=== PATIENT | female | born 1985 | race Caucasian/White ===

== ENCOUNTER 2019-09-22 16:36 | Inpatient (IN) | payer BC ==
[2019-09-22] MEDS ORDERED: Sodium Chloride 0.9% 10 ML Syringe FLUSH PRN (17:22)
[2019-09-22] MEDS ORDERED: Acetaminophen 325 MG Tab PO PRN (17:22)
[2019-09-22] MEDS ORDERED: Misoprostol 25 MCG (1/4 of 100 MCG) Tab VAG SCH (17:30)
[2019-09-22] MEDS ORDERED: Oxytocin/Lactated Ringers 20 UNIT/1,000 ML BAG IV SCH (17:30)
[2019-09-22] MEDS ORDERED: Oxytocin/Lactated Ringers 10 UNIT/1,000 ML BAG IV SCH (17:30)
[2019-09-22] MEDS ORDERED: Ampicillin 2 GM in Sodium Chloride 0.9% 100 ML IV ONE (18:00)
[2019-09-22] MEDS: Lactated Ringers 1,000 ML IV SCH (18:02)
[2019-09-22] MEDS: Ampicillin 1 GM in Sodium Chloride 0.9% 100 ML IV SCH (21:31)
[2019-09-23] MEDS ORDERED: Lidocaine 1.5% with EPINEPHrine 1:200,000 5 ML Amp ONE
[2019-09-23] MEDS ORDERED: ePHEDrine 50 MG/ML SDV IVPUSH PRN (00:21)
[2019-09-23] MEDS ORDERED: Bupivacaine/fentaNYL/NS 100 ML Bag EPIDUR PRN (00:21)
[2019-09-23] MEDS ORDERED: fentaNYL 100 MCG/2 ML SDV EPIDUR PRN (00:21)
[2019-09-23] MEDS ORDERED: diphenhydrAMINE 50 MG/ML SDV IVPUSH PRN (00:21)
--- NOTE | 2019-09-23 00:21 | PCM.PREANE ---
Preanesthetic Assessment - Anesthesia/Transfusion/Family Hx Anesthesia History: Prior Anesthesia Without Reaction Transfusion History: No Prior Transfusion(s) - Review of Systems General: No Symptoms Pulmonary: No Symptoms Cardiovascular: No Symptoms Gastrointestinal: No Symptoms Neurological: No Symptoms Other: Reports: None - Physical Assessment Vital Signs: Last Vital Signs Temp 97.9 F 09/22/19 17:22 Pulse 85 09/22/19 18:30 Resp 14 09/22/19 17:22 BP 145/84 H 09/22/19 18:30 Pulse Ox Height: 1.68 m Weight: 94.801 kg ASA Class: 2 Mental Status: Alert & Oriented x3 Airway Class: Mallampati = 2 Dentition: Reports: Normal Dentition Thyro-Mental Finger Breadths: 3 Mouth Opening Finger Breadths: 3 ROM/Head Extension: Full (small receding chin, potentially difficult airway) Lungs: Clear to Auscultation, Normal Respiratory Effort Cardiovascular: Regular Rate, Regular Rhythm - Lab Values: Laboratory Last Values WBC 9.25 K/mm3 (3.98-10.04) 09/22/19 17:35 RBC 4.01 M/mm3 (3.98-5.22) 09/22/19 17:35 Hgb 12.3 gm/dl (11.2-15.7) 09/22/19 17:35 Hct 36.7 % (34.1-44.9) 09/22/19 17:35 MCV 91.5 fl (79.4-94.8) 09/22/19 17:35 MCH 30.7 pg (25.6-32.2) 09/22/19 17:35 MCHC 33.5 g/dl (32.2-35.5) 09/22/19 17:35 RDW Std Deviation 44.5 fL (36.4-46.3) 09/22/19 17:35 Plt Count 173 K/mm3 (182-369) L 09/22/19 17:35 MPV 10.4 fl (9.4-12.3) 09/22/19 17:35 Neut % (Auto) 70.3 % (34.0-71.1) 09/22/19 17:35 Lymph % (Auto) 22.6 % (19.3-51.7) 09/22/19 17:35 [place] % (Auto) 6.3 % (4.7-12.5) 09/22/19 17:35 Eos % (Auto) 0.4 (0.7-5.8) L 09/22/19 17:35 Baso % (Auto) 0.2 % (0.1-1.2) 09/22/19 17:35 Neut # (Auto) 6.50 K/mm3 (1.56-6.13) H 09/22/19 17:35 Lymph # (Auto) 2.09 K/mm3 (1.18-3.74) 09/22/19 17:35 [place] # (Auto) 0.58 K/mm3 (0.24-0.36) H 09/22/19 17:35 Eos # (Auto) 0.04 K/mm3 (0.04-0.36) 09/22/19 17:35 Baso # (Auto) 0.02 K/mm3 (0.01-0.08) 09/22/19 17:35 BUN 7 mg/dL (7-18) 09/22/19 17:35 Creatinine 0.8 mg/dL (0.55-1.02) 09/22/19 17:35 Est Cr Clr Drug Dosing 93.63 mL/min 09/22/19 17:35 Estimated GFR (MDRD) > 60 mL/min (>60) 09/22/19 17:35 Uric Acid 5.3 mg/dL (2.6-6.0) 09/22/19 17:35 AST 15 U/L (15-37) 09/22/19 17:35 ALT 15 U/L (14-59) 09/22/19 17:35 Lactate Dehydrogenase 148 U/L (81-234) 09/22/19 17:35 Urine Color Yellow (Yellow) 09/22/19 17:15 Urine Appearance Clear (Clear) 09/22/19 17:15 Urine pH 7.0 (5.0-8.0) 09/22/19 17:15 Ur Specific [place] 1.020 (1.005-1.030) 09/22/19 17:15 Urine Protein Negative (Negative) 09/22/19 17:15 Urine Glucose (UA) Negative (Negative) 09/22/19 17:15 Urine Ketones Negative (Negative) 09/22/19 17:15 Urine Occult Blood Negative (Negative) 09/22/19 17:15 Urine Nitrite Negative (Negative) 09/22/19 17:15 Urine Bilirubin Negative (Negative) 09/22/19 17:15 Urine Urobilinogen 0.2 (0.2-1.0) 09/22/19 17:15 Ur Leukocyte Esterase 1+ (Negative) H 09/22/19 17:15 Urine RBC 0-5 /hpf (0-5) 09/22/19 17:15 Urine WBC 10-20 /hpf (0-5) H 09/22/19 17:15 Ur Squamous Epith Cells 10-20 /hpf (0-5) H 09/22/19 17:15 Urine Bacteria Few /hpf (FEW) 09/22/19 17:15 Urine Mucus Not seen /hpf (FEW) 09/22/19 17:15 Ur Random Creatinine 17.5 mg/dL (30.0-125.0) L 09/22/19 17:30 U Random Total Protein < 6.0 mg/dL (0.0-11.8) 09/22/19 17:30 Protein/Creatinin Ratio TNP 09/22/19 17:30 - Allergies Allergies/Adverse Reactions: Allergies Allergy/AdvReac Type Severity Reaction Status Date / Time No Known Allergies Allergy Verified 04/27/18 13:49 - Acknowledgements Anesthesia Type Planned: Epidural Pt an Appropriate Candidate for the Planned Anesthesia: Yes Alternatives and Risks of Anesthesia Discussed w Pt/Guardian: Yes Pt/Guardian Understands and Agrees with Anesthesia Plan: Yes PreAnesthesia Questionnaire HEENT History: Reports: Other (See Below) Other HEENT History: wears glasses or contacts Cardiovascular History: Reports: Hypertension Other Cardiovascular History: states is not on meds. 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 Cardiovascular Surgical History: Reports: None - SUBSTANCE USE Smoking Status *Q: Never Smoker Second Hand Smoke Exposure: No Recreational Drug Use History: No - HOME MEDS Home Medications: Home Meds [id number]/Iron Fumarate/FA/DSS [ 19 Tablet] 1 each PO DAILY 09/22/19 [ History] - CURRENT (IN HOUSE) MEDS Current Meds: Current Medications Acetaminophen (Tylenol) 650 mg PO Q4H PRN PRN Reason: Pain (Mild 1-3) and fever Ampicillin Sodium 1 gm/ Sodium (Chloride) 100 mls @ 200 mls/hr IV Q4H KIMBERLY Last Admin: 09/22/19 21:31 Dose: 200 mls/hr Lactated Ringer's (Ringers, Lactated) 1,000 mls @ 100 mls/hr IV ASDIRECTED KIMBERLY Last Admin: 09/22/19 18:02 Dose: 100 mls/hr Oxytocin/Lactated Ringer's (Pitocin In Lr 10 Units/1,000 Ml) 10 unit in 1,000 mls @ 12 mls/hr IV TITRATE KIMBERLY; Protocol Last Admin: 09/22/19 23:32 Dose: 2 munits/min, 12 mls/hr Oxytocin/Lactated Ringer's (Pitocin In Lr 20 Units/1,000 Ml) 20 unit in 1,000 mls @ 500 mls/hr IV CONTINUOUS KIMBERLY Sodium Chloride (Saline Flush) 10 ml FLUSH ASDIRECTED PRN PRN Reason: Keep Vein Open Discontinued Medications Ampicillin Sodium 2 gm/ Sodium (Chloride) 100 mls @ 200 mls/hr IV ONETIME ONE Stop: 09/22/19 18:29 Last Admin: 09/22/19 18:03 Dose: 200 mls/hr Misoprostol (Cytotec) 25 mcg VAG Q4H KIMBERLY Stop: 09/23/19 01:31 Last Admin: 09/22/19 17:41 Dose: 25 mcg
[2019-09-23] MEDS: Lactated Ringers 1,000 ML IV SCH ×3 (00:26→02:00)
[2019-09-23] MEDS: Ampicillin 1 GM in Sodium Chloride 0.9% 100 ML IV SCH (01:57)
--- NOTE | 2019-09-23 05:26 | PCM.LDHP ---
L&D History of Present Illness - General Date of Service: 09/19/19 Admit Problem/Dx: Patient Status Order with Admit Dx/Problem 09/22/19 17:22 Patient Status [ADT] Routine Admission Diagnosis/Problem Admission Diagnosis/Problem Source of Information: Patient History Limitations: Reports: No Limitations - History of Present Illness Introduction:: He 4-year-old 001 SAMMY 09/20/19 presented to labor and delivery on Tuesday09/22/2019 with borderline elevated blood pressures. Patient had been scheduled for induction on Tuesday09/23/2019. Patient was An induction begun on Tuesday09/22/2019. Previous delivery 08/26/2005 02/27/2019 blood type B negative antibody screen negative, hemoglobin/hematocrit 13.6/39.6 platelets 238,000, rubella immune, serology nonreactive, urine culture mixed pilar, hepatitis B surface antigen negative, HIV negative. GC and chlamydia probe negative. 06/26/2019 hemoglobin/hematocrit 12.3/36.6 platelets 195,001 hour OB glucose screen not recorded 3 hour glucose tolerance test fasting 86, 1 hour 169, two- hour 115, 3 hour 104. RPR nonreactive 08/23/2019 GBS positive. 06/26/19 Rh immune globulin given. Plan induction and delivery. Pain Score: 7 Improves with: Reports: None Worsens with: Reports: None Associated Symptoms: Reports: N - Related Data Allergies/Adverse Reactions: Allergies Allergy/AdvReac Type Severity Reaction Status Date / Time No Known Allergies Allergy Verified 04/27/18 13:49 Home Medications: Home Meds [id number]/Iron Fumarate/FA/DSS [ 19 Tablet] 1 each PO DAILY 09/22/19 [ History] Past Medical History HEENT History: Reports: Other (See Below) Other HEENT History: wears glasses or contacts Cardiovascular History: Reports: Hypertension Other Cardiovascular History: states is not on meds. 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 Cardiovascular Surgical History: Reports: None Social & Family History - Family History Family Medical History: Noncontributory - Tobacco Use Smoking Status *Q: Never Smoker Second Hand Smoke Exposure: No - Caffeine Use Caffeine Use: Reports: Soda - Recreational Drug Use Recreational Drug Use: No H&P Review of Systems - Review of Systems: Review Of Systems: See Below General: Reports: No Symptoms HEENT: Reports: No Symptoms Pulmonary: Reports: No Symptoms Cardiovascular: Reports: No Symptoms Gastrointestinal: Reports: No Symptoms Genitourinary: Reports: No Symptoms Musculoskeletal: Reports: No Symptoms Skin: Reports: No Symptoms Psychiatric: Reports: No Symptoms Neurological: Reports: No Symptoms Hematologic/Lymphatic: Reports: No Symptoms Immunologic: Reports: No Symptoms L&D Exam - Exam Exam: See Below - Vital Signs Vital Signs: Last Vital Signs Temp 97.9 F 09/22/19 17:22 Pulse 85 09/22/19 18:30 Resp 14 09/22/19 17:22 BP 145/84 H 09/22/19 18:30 Pulse Ox Weight: 209 lb - OB Specific Fundal Height In cm: 40 Movement: Active Heart Tones: Present Heart Tones per Min: 140 Heart Rate (FHR) Variability: Moderate (6-25 bmp) Presentation: Vertex Estimated Weight: 8 - Chacon Score Chacon Score Cervix Position: Posterior Chacon Score Consistency: Soft Chacon Score Effacement: 0-30% Chacon Score Dilation: 1-2 cm Chacon Score Infant's Station: -3 Chacon Score Total: 3 - Exam General: Alert, Oriented HEENT: Conjunctiva Clear Neck: Supple, Trachea Midline Lungs: Clear to Auscultation, Normal Respiratory Effort Cardiovascular: Regular Rate, Regular Rhythm GI/Abdominal Exam: Normal Bowel Sounds, Soft, Non-Tender Genitourinary: Normal external exam Extremities: Normal Inspection, Non-Tender, No Pedal Edema, Normal Capillary Refill Skin: Warm, Dry, Intact DTR: 2+: Patella (L), Patella (R) Psychiatric: Alert, Normal Affect, Normal Mood - Patient Data Lab Results Last 24 hrs: Laboratory Results - last 24 hr 09/22/19 09/22/19 09/22/19 Range/Units 17:15 17:30 17:35 WBC 9.25 (3.98-10.04) K/mm3 RBC 4.01 (3.98-5.22) M/mm3 Hgb 12.3 (11.2-15.7) gm/dl Hct 36.7 (34.1-44.9) % MCV 91.5 (79.4-94.8) fl MCH 30.7 (25.6-32.2) pg MCHC 33.5 (32.2-35.5) g/dl RDW Std Deviation 44.5 (36.4-46.3) fL Plt Count 173 L (182-369) K/mm3 MPV 10.4 (9.4-12.3) fl Neut % (Auto) 70.3 (34.0-71.1) % Lymph % (Auto) 22.6 (19.3-51.7) % [place] % (Auto) 6.3 (4.7-12.5) % Eos % (Auto) 0.4 L (0.7-5.8) Baso % (Auto) 0.2 (0.1-1.2) % Neut # (Auto) 6.50 H (1.56-6.13) K/mm3 Lymph # (Auto) 2.09 (1.18-3.74) K/mm3 [place] # (Auto) 0.58 H (0.24-0.36) K/mm3 Eos # (Auto) 0.04 (0.04-0.36) K/mm3 Baso # (Auto) 0.02 (0.01-0.08) K/mm3 BUN (7-18) mg/dL Creatinine (0.55-1.02) mg/dL Est Cr Clr Drug Dosing mL/min Estimated GFR (MDRD) (>60) mL/min Uric Acid (2.6-6.0) mg/dL AST (15-37) U/L ALT (14-59) U/L Lactate Dehydrogenase (81-234) U/L Urine Color Yellow (Yellow) Urine Appearance Clear (Clear) Urine pH 7.0 (5.0-8.0) Ur Specific [place] 1.020 (1.005-1.030) Urine Protein Negative (Negative) Urine Glucose (UA) Negative (Negative) Urine Ketones Negative (Negative) Urine Occult Blood Negative (Negative) Urine Nitrite Negative (Negative) Urine Bilirubin Negative (Negative) Urine Urobilinogen 0.2 (0.2-1.0) Ur Leukocyte Esterase 1+ H (Negative) Urine RBC 0-5 (0-5) /hpf Urine WBC 10-20 H (0-5) /hpf Ur Squamous Epith Cells 10-20 H (0-5) /hpf Urine Bacteria Few (FEW) /hpf Urine Mucus Not seen (FEW) /hpf Ur Random Creatinine 17.5 L (30.0-125.0) mg/dL U Random Total Protein < 6.0 (0.0-11.8) mg/dL Protein/Creatinin Ratio TNP 03/14/20 Range/Units 17:35 WBC (3.98-10.04) K/mm3 RBC (3.98-5.22) M/mm3 Hgb (11.2-15.7) gm/dl Hct (34.1-44.9) % MCV (79.4-94.8) fl MCH (25.6-32.2) pg MCHC (32.2-35.5) g/dl RDW Std Deviation (36.4-46.3) fL Plt Count (182-369) K/mm3 MPV (9.4-12.3) fl Neut % (Auto) (34.0-71.1) % Lymph % (Auto) (19.3-51.7) % [place] % (Auto) (4.7-12.5) % Eos % (Auto) (0.7-5.8) Baso % (Auto) (0.1-1.2) % Neut # (Auto) (1.56-6.13) K/mm3 Lymph # (Auto) (1.18-3.74) K/mm3 [place] # (Auto) (0.24-0.36) K/mm3 Eos # (Auto) (0.04-0.36) K/mm3 Baso # (Auto) (0.01-0.08) K/mm3 BUN 7 (7-18) mg/dL Creatinine 0.8 (0.55-1.02) mg/dL Est Cr Clr Drug Dosing 93.63 mL/min Estimated GFR (MDRD) > 60 (>60) mL/min Uric Acid 5.3 (2.6-6.0) mg/dL AST 15 (15-37) U/L ALT 15 (14-59) U/L Lactate Dehydrogenase 148 (81-234) U/L Urine Color (Yellow) Urine Appearance (Clear) Urine pH (5.0-8.0) Ur Specific [place] (1.005-1.030) Urine Protein (Negative) Urine Glucose (UA) (Negative) Urine Ketones (Negative) Urine Occult Blood (Negative) Urine Nitrite (Negative) Urine Bilirubin (Negative) Urine Urobilinogen (0.2-1.0) Ur Leukocyte Esterase (Negative) Urine RBC (0-5) /hpf Urine WBC (0-5) /hpf Ur Squamous Epith Cells (0-5) /hpf Urine Bacteria (FEW) /hpf Urine Mucus (FEW) /hpf Ur Random Creatinine (30.0-125.0) mg/dL U Random Total Protein (0.0-11.8) mg/dL Protein/Creatinin Ratio Result Diagrams: 09/22/19 17:35 09/22/19 17:35 - Problem List (1) 40 weeks gestation of SNOMED Code(s): 57635333 ICD Code: Z3A.40 - 40 WEEKS GESTATION OF Status: Acute Current Visit: Yes (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 Code(s): 2976367619676 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 DIRECTED Care 09/22/19 17:23 Active Vital Signs [RC] PER UNIT ROUTINE Care 09/22/19 17:22 Active Regular Diet [DIET] Diet 09/22/19 Lunch Active RAPID PLASMA REAGIN,RPR [CHEM] Routine Lab 09/22/19 17:35 Received Acetaminophen [Tylenol] Med 09/22/19 17:22 Active 650 mg PO Q4H PRN Ampicillin 1 gm Med 09/22/19 22:00 Active Sodium Chloride 0.9% [Normal Saline] 100 ml IV Q4H Bupivacaine/fentaNYL/NS [fentaNYL/Bupivacaine/NS 2 MCG- Med 09/23/19 00:21 Active 0.125% 100 ML] 100 ml EPIDUR ASDIRECTED PRN Lactated Ringers [Ringers, Lactated] 1,000 ml Med 09/22/19 17:30 Active IV ASDIRECTED Oxytocin/Lactated Ringers [Pitocin in LR 10 Units/1,000 Med 09/22/19 17:30 Active ML] 10 unit in 1,000 ml IV TITRATE Oxytocin/Lactated Ringers [Pitocin in LR 20 Units/1,000 Med 09/22/19 17:30 Active ML] 20 unit in 1,000 ml IV CONTINUOUS Sodium Chloride 0.9% [Saline Flush] Med 09/22/19 17:22 Active 10 ml FLUSH ASDIRECTED PRN diphenhydrAMINE [Benadryl] Med 09/23/19 00:21 Active 25 mg IVPUSH Q6H PRN ePHEDrine [ePHEDrine sulfate] Med 09/23/19 00:21 Active 5 mg IVPUSH ASDIRECTED PRN fentaNYL [Sublimaze] Med 09/23/19 00:21 Active 100 mcg EPIDUR Q3H PRN Electronic Heart Tones Ext w TOCO [WOMSER] Oth 09/22/19 17:22 Ordered Routine Electronic Heart Tones Internal [WOMSER] Per Unit Oth 09/22/19 17:22 Ordered Routine PIH Panel [OM.PC] Stat Oth 09/22/19 17:22 Ordered Peripheral IV Insertion Adult [OM.PC] Routine Oth 09/22/19 17:22 Ordered Resuscitation Status Routine Resus Stat 09/22/19 17:22 Ordered Medication Orders Acetaminophen (Tylenol) 650 mg PO Q4H PRN PRN Reason: Pain (Mild 1-3) and fever Diphenhydramine HCl (Benadryl) 25 mg IVPUSH Q6H PRN PRN Reason: pruritis Ephedrine Sulfate (Ephedrine Sulfate) 5 mg IVPUSH ASDIRECTED PRN PRN Reason: Hypotension Fentanyl (Sublimaze) 100 mcg EPIDUR Q3H PRN PRN Reason: Pain Last Admin: 09/23/19 00:40 Dose: 100 mcg Fentanyl/Bupivacaine HCl (Fentanyl/Bupivacaine/Ns 2 Mcg-0.125% 100 Ml) 100 ml EPIDUR ASDIRECTED PRN PRN Reason: Pain Last Admin: 09/23/19 00:40 Dose: 100 ml Ampicillin Sodium 1 gm/ Sodium (Chloride) 100 mls @ 200 mls/hr IV Q4H KIMBERLY Last Admin: 09/23/19 01:57 Dose: 200 mls/hr Infusion: 09/22/19 22:01 Dose: 200 mls/hr Admin: 09/22/19 21:31 Dose: 200 mls/hr Lactated Ringer's (Ringers, Lactated) 1,000 mls @ 100 mls/hr IV ASDIRECTED KIMBERLY Last Admin: 09/23/19 02:00 Dose: 100 mls/hr Infusion: 09/23/19 02:00 Dose: 100 mls/hr Admin: 09/23/19 01:30 Dose: 100 mls/hr Infusion: 09/23/19 01:30 Dose: 100 mls/hr Admin: 09/23/19 00:26 Dose: 100 mls/hr Infusion: 09/23/19 00:26 Dose: 100 mls/hr Admin: 09/22/19 18:02 Dose: 100 mls/hr Oxytocin/Lactated Ringer's (Pitocin In Lr 10 Units/1,000 Ml) 10 unit in 1,000 mls @ 12 mls/hr IV TITRATE KIMBERLY; Protocol Last Admin: 09/22/19 23:32 Dose: 2 munits/min, 12 mls/hr Oxytocin/Lactated Ringer's (Pitocin In Lr 20 Units/1,000 Ml) 20 unit in 1,000 mls @ 500 mls/hr IV CONTINUOUS KIMBERLY Sodium Chloride (Saline Flush) 10 ml FLUSH ASDIRECTED PRN PRN Reason: Keep Vein Open Assessment/Plan Comment:: Plan: Induction, delivery
--- NOTE | 2019-09-23 05:32 | PCM.DEL ---
L & D Note - General Info Date of Service: 09/23/19 Mother's Due Date: 09/20/19 - Delivery Note Cervical Ripening Method: Misoprostil, Oxytocin Delivery Outcome: Livebirth (Male liveborn Tuesday09/23/2019 at 0501 hrs. Apgars 8/9 weight 30/6/80 grams/8 pounds 1.8 ounces under epidural anesthesia over no episiotomy with second-degree midline laceration SANG nuchal cord times one) Infant Delivery Method: Spontaneous Vaginal Delivery-Single Delivery Mode: Spontaneous Presentation: Left Occiput Anterior (SANG) Nuchal Cord: Present, Reduced Anesthesia Type: Epidural (Odor) Amniotic Fluid Description: Clear Episiotomy Type: None Laceration: 2nd Degree Suture type: Other (Monocryl) Suture size: 3-0 Placenta: Intact, Spontaneous (0504 hrs. on Tuesday09/23/2019 examined and tacked discarded) Cord: 3 Vessels Estimated Blood Loss: 250 Resuscitation Needed: No [place]: Suctioned, Bulb Syringe, Stimulated, Warmed, [place] Used, Warmer Used Provider: Ron Villanueva Score 1 min: 8 Score 5 min: 9 Induction Criteria - Chacon Score Chacon Score Dilation: 1-2 cm Chacon Score Effacement: 0-30% Chacon Score Infant's Station: -2 Chacon Score Consistency: Soft Chacon Score Cervix Position: Posterior Chacon Score Total: 4 Chacon Score Presenting Part: Reports: Cephalic - Induction Gestational Age >/= 39 wks: Yes Estimated Pelvis: Reports: Adequate Reassuring Monitoring Strip: Yes Absence of Tachy Systole: Yes - Augmentation Estimated Pelvis: Reports: Adequate Weight Estimated:: Reports: AGA Reassuring Monitoring Strip: Yes Absence of Tachy Systole: Yes - General Info Date of Service: 09/23/19 Functional Status: Reports: Pain Controlled - Review of Systems General: Reports: No Symptoms HEENT: Reports: No Symptoms Pulmonary: Reports: No Symptoms Cardiovascular: Reports: No Symptoms Gastrointestinal: Reports: No Symptoms Genitourinary: Reports: No Symptoms Musculoskeletal: Reports: No Symptoms Skin: Reports: No Symptoms Neurological: Reports: No Symptoms Psychiatric: Reports: No Symptoms - Patient Data Vitals - Most Recent: Last Vital Signs Temp 97.9 F 09/22/19 17:22 Pulse 85 09/22/19 18:30 Resp 14 09/22/19 17:22 BP 145/84 H 09/22/19 18:30 Pulse Ox Weight - Most Recent: 209 lb Lab Results Last 24 Hours: Laboratory Results - last 24 hr 09/22/19 09/22/19 09/22/19 Range/Units 17:15 17:30 17:35 WBC 9.25 (3.98-10.04) K/mm3 RBC 4.01 (3.98-5.22) M/mm3 Hgb 12.3 (11.2-15.7) gm/dl Hct 36.7 (34.1-44.9) % MCV 91.5 (79.4-94.8) fl MCH 30.7 (25.6-32.2) pg MCHC 33.5 (32.2-35.5) g/dl RDW Std Deviation 44.5 (36.4-46.3) fL Plt Count 173 L (182-369) K/mm3 MPV 10.4 (9.4-12.3) fl Neut % (Auto) 70.3 (34.0-71.1) % Lymph % (Auto) 22.6 (19.3-51.7) % [place] % (Auto) 6.3 (4.7-12.5) % Eos % (Auto) 0.4 L (0.7-5.8) Baso % (Auto) 0.2 (0.1-1.2) % Neut # (Auto) 6.50 H (1.56-6.13) K/mm3 Lymph # (Auto) 2.09 (1.18-3.74) K/mm3 [place] # (Auto) 0.58 H (0.24-0.36) K/mm3 Eos # (Auto) 0.04 (0.04-0.36) K/mm3 Baso # (Auto) 0.02 (0.01-0.08) K/mm3 BUN (7-18) mg/dL Creatinine (0.55-1.02) mg/dL Est Cr Clr Drug Dosing mL/min Estimated GFR (MDRD) (>60) mL/min Uric Acid (2.6-6.0) mg/dL AST (15-37) U/L ALT (14-59) U/L Lactate Dehydrogenase (81-234) U/L Urine Color Yellow (Yellow) Urine Appearance Clear (Clear) Urine pH 7.0 (5.0-8.0) Ur Specific [place] 1.020 (1.005-1.030) Urine Protein Negative (Negative) Urine Glucose (UA) Negative (Negative) Urine Ketones Negative (Negative) Urine Occult Blood Negative (Negative) Urine Nitrite Negative (Negative) Urine Bilirubin Negative (Negative) Urine Urobilinogen 0.2 (0.2-1.0) Ur Leukocyte Esterase 1+ H (Negative) Urine RBC 0-5 (0-5) /hpf Urine WBC 10-20 H (0-5) /hpf Ur Squamous Epith Cells 10-20 H (0-5) /hpf Urine Bacteria Few (FEW) /hpf Urine Mucus Not seen (FEW) /hpf Ur Random Creatinine 17.5 L (30.0-125.0) mg/dL U Random Total Protein < 6.0 (0.0-11.8) mg/dL Protein/Creatinin Ratio TNP 03//20 Range/Units 17:35 WBC (3.98-10.04) K/mm3 RBC (3.98-5.22) M/mm3 Hgb (11.2-15.7) gm/dl Hct (34.1-44.9) % MCV (79.4-94.8) fl MCH (25.6-32.2) pg MCHC (32.2-35.5) g/dl RDW Std Deviation (36.4-46.3) fL Plt Count (182-369) K/mm3 MPV (9.4-12.3) fl Neut % (Auto) (34.0-71.1) % Lymph % (Auto) (19.3-51.7) % [place] % (Auto) (4.7-12.5) % Eos % (Auto) (0.7-5.8) Baso % (Auto) (0.1-1.2) % Neut # (Auto) (1.56-6.13) K/mm3 Lymph # (Auto) (1.18-3.74) K/mm3 [place] # (Auto) (0.24-0.36) K/mm3 Eos # (Auto) (0.04-0.36) K/mm3 Baso # (Auto) (0.01-0.08) K/mm3 BUN 7 (7-18) mg/dL Creatinine 0.8 (0.55-1.02) mg/dL Est Cr Clr Drug Dosing 93.63 mL/min Estimated GFR (MDRD) > 60 (>60) mL/min Uric Acid 5.3 (2.6-6.0) mg/dL AST 15 (15-37) U/L ALT 15 (14-59) U/L Lactate Dehydrogenase 148 (81-234) U/L Urine Color (Yellow) Urine Appearance (Clear) Urine pH (5.0-8.0) Ur Specific [place] (1.005-1.030) Urine Protein (Negative) Urine Glucose (UA) (Negative) Urine Ketones (Negative) Urine Occult Blood (Negative) Urine Nitrite (Negative) Urine Bilirubin (Negative) Urine Urobilinogen (0.2-1.0) Ur Leukocyte Esterase (Negative) Urine RBC (0-5) /hpf Urine WBC (0-5) /hpf Ur Squamous Epith Cells (0-5) /hpf Urine Bacteria (FEW) /hpf Urine Mucus (FEW) /hpf Ur Random Creatinine (30.0-125.0) mg/dL U Random Total Protein (0.0-11.8) mg/dL Protein/Creatinin Ratio Med Orders - Current: Current Medications Acetaminophen (Tylenol) 650 mg PO Q4H PRN PRN Reason: Pain (Mild 1-3) and fever Diphenhydramine HCl (Benadryl) 25 mg IVPUSH Q6H PRN PRN Reason: pruritis Ephedrine Sulfate (Ephedrine Sulfate) 5 mg IVPUSH ASDIRECTED PRN PRN Reason: Hypotension Fentanyl (Sublimaze) 100 mcg EPIDUR Q3H PRN PRN Reason: Pain Last Admin: 09/23/19 00:40 Dose: 100 mcg Fentanyl/Bupivacaine HCl (Fentanyl/Bupivacaine/Ns 2 Mcg-0.125% 100 Ml) 100 ml EPIDUR ASDIRECTED PRN PRN Reason: Pain Last Admin: 09/23/19 00:40 Dose: 100 ml Ampicillin Sodium 1 gm/ Sodium (Chloride) 100 mls @ 200 mls/hr IV Q4H KIMBERLY Last Admin: 09/23/19 01:57 Dose: 200 mls/hr Lactated Ringer's (Ringers, Lactated) 1,000 mls @ 100 mls/hr IV ASDIRECTED KIMBERLY Last Admin: 09/23/19 02:00 Dose: 100 mls/hr Oxytocin/Lactated Ringer's (Pitocin In Lr 10 Units/1,000 Ml) 10 unit in 1,000 mls @ 12 mls/hr IV TITRATE KIMBERLY; Protocol Last Admin: 09/22/19 23:32 Dose: 2 munits/min, 12 mls/hr Oxytocin/Lactated Ringer's (Pitocin In Lr 20 Units/1,000 Ml) 20 unit in 1,000 mls @ 500 mls/hr IV CONTINUOUS KIMBERLY Sodium Chloride (Saline Flush) 10 ml FLUSH ASDIRECTED PRN PRN Reason: Keep Vein Open Discontinued Medications Ampicillin Sodium 2 gm/ Sodium (Chloride) 100 mls @ 200 mls/hr IV ONETIME ONE Stop: 09/22/19 18:29 Last Admin: 09/22/19 18:03 Dose: 200 mls/hr Misoprostol (Cytotec) 25 mcg VAG Q4H KIMBERLY Stop: 09/23/19 01:31 Last Admin: 09/22/19 17:41 Dose: 25 mcg - Exam General: Alert, Oriented HEENT: Pupils Equal, Mucous Membr. Moist/[place] Neck: Supple Lungs: Clear to Auscultation, Normal Respiratory Effort Cardiovascular: Regular Rate, Regular Rhythm (Female) Exam: Normal External Exam Extremities: Normal Inspection, Non-Tender, No Pedal Edema, Normal Capillary Refill Skin: Warm, Dry, Intact Psy/Mental Status: Alert, Normal Affect, Normal Mood - Problem List & Annotations (1) 40 weeks gestation of SNOMED Code(s): 13229329 Code(s): Z3A.40 - 40 WEEKS GESTATION OF Status: Acute Current Visit: Yes (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 Code(s): 6678499841290 Code(s): Z22.330 - CARRIER OF GROUP B STREPTOCOCCUS Status: Acute Current Visit: Yes (3) Nuchal cord without compression, delivered, current hospitalization SNOMED Code(s): 86995265, 957155074 Code(s): O69.81X0 - LABOR AND DEL COMP BY CORD AROUND NECK, W/O COMPRSN, UNSP Status: Acute Current Visit: Yes (4) Second degree perineal laceration during delivery SNOMED Code(s): 1678504 Code(s): O70.1 - SECOND DEGREE PERINEAL LACERATION DURING DELIVERY Status: Acute Current Visit: Yes (5) Encounter for vaginal delivery SNOMED Code(s): 460228655, 924581737 Code(s): O80 - ENCOUNTER FOR FULL-TERM UNCOMPLICATED DELIVERY Status: Acute Current Visit: Yes - Problem List Review Problem List Initiated/Reviewed/Updated: No - My Orders Last 24 Hours: My Active Orders 09/22/19 17:22 Patient Status [ADT] Routine Activity as Tolerated [RC] PFP Communication Order [RC] ASDIRECTED Non Stress Test [RC] PER UNIT ROUTINE Notify Provider [RC] PFP Notify Provider [RC] PRN Vital Signs [RC] PER UNIT ROUTINE Acetaminophen [Tylenol] 650 mg PO Q4H PRN Sodium Chloride 0.9% [Saline Flush] 10 ml FLUSH ASDIRECTED PRN Electronic Heart Tones Ext w TOCO [WOMSER] Routine Electronic Heart Tones Internal [WOMSER] Per Unit Routine PIH Panel [OM.PC] Stat Peripheral IV Insertion Adult [OM.PC] Routine Resuscitation Status Routine 09/22/19 17:23 Peripheral IV Care [RC] . DIRECTED 09/22/19 17:30 Lactated Ringers [Ringers, Lactated] 1,000 ml IV ASDIRECTED Oxytocin/Lactated Ringers [Pitocin in LR 10 Units/1,000 ML] 10 unit in 1,000 ml IV TITRATE Oxytocin/Lactated Ringers [Pitocin in LR 20 Units/1,000 ML] 20 unit in 1,000 ml IV CONTINUOUS 09/22/19 17:35 RAPID PLASMA REAGIN,RPR [CHEM] Routine 09/22/19 22:00 Ampicillin 1 gm Sodium Chloride 0.9% [Normal Saline] 100 ml IV Q4H 09/22/19 Lunch Regular Diet [DIET] - Plan Plan:: Plan: Induction, delivery
[2019-09-23] MEDS ORDERED: Docusate Sodium 100 MG Cap PO PRN (05:38)
[2019-09-23] MEDS: Benzocaine/Menthol 20%-0.5% Spray 56 GM Canister TOP PRN (06:34)
[2019-09-23] MEDS: Ibuprofen 600 MG Tab PO PRN ×5 (06:35→23:07)
[2019-09-23] MEDS: Witch Hazel Medicated Pads 40/Jar TOP PRN (06:35)
[2019-09-23] MEDS: Acetaminophen 325 MG Tab PO PRN ×4 (09:16→21:37)
--- NOTE | 2019-09-23 12:56 | PCM48HPAN ---
Post Anesthesia Note - EVALUATION WITHIN 48HRS OF ANESTHETIC Vital Signs in Normal Range: Yes Patient Participated in Evaluation: Yes Respiratory Function Stable: Yes Airway Patent: Yes Cardiovascular Function Stable: Yes Hydration Status Stable: Yes Pain Control Satisfactory: Yes Nausea and Vomiting Control Satisfactory: Yes Mental Status Recovered: Yes Vital Signs: Last Vital Signs Temp 98.6 F 09/23/19 10:13 Pulse 61 09/23/19 10:13 Resp 16 09/23/19 10:13 BP 116/75 09/23/19 10:13 Pulse Ox 96 09/23/19 10:13 - COMMENTS/OBSERVATIONS Free Text/Narrative:: Patient is on her day 1. Stated understanding about possible backaches following epidural anesthesia. Reports no back soreness at this time. Explanation given about importance of avoiding back straining. Denies any headache or lightheadedness at this time. Comfortable now. Ambulating, no difficulty urinating.
[2019-09-24] MEDS ORDERED: Lidocaine 2% with EPINEPHrine 1:200,000 20 ML SDV ONE
[2019-09-24] MEDS ORDERED: Lidocaine 1.5% with EPINEPHrine 1:200,000 5 ML Amp ONE
[2019-09-24] MEDS: Acetaminophen 325 MG Tab PO PRN (02:39)
[2019-09-24] MEDS: Ibuprofen 600 MG Tab PO PRN (05:17)
--- NOTE | 2019-09-24 07:44 | PCM.DCSUM1 ---
Discharge Summary - Hospital Course Free Text/Narrative:: [facility] LIVE L/D Delivery Note Patient Name: VANESSA ALDRIDGE Date of : 87 Patient Status: Inpatient Attending Provider: Ron Villanueva Date: 09/23/19 05:27 Initialization Date: 09/23/19 05:27 L & D Note - General Info Date of Service: 09/23/19 Mother's Due Date: 09/20/19 - Delivery Note Cervical Ripening Method: Misoprostil, Oxytocin Delivery Outcome: Livebirth (Male liveborn Tuesday09/23/2019 at 0501 hrs. Apgars 8/9 weight 30/6/80 grams/8 pounds 1.8 ounces under epidural anesthesia over no episiotomy with second-degree midline laceration SANG nuchal cord times one) Delivery Method: Spontaneous Vaginal Delivery-Single Infant Delivery Mode: Spontaneous Presentation: Left Occiput Anterior (SANG) Nuchal Cord: Present, Reduced Anesthesia Type: Epidural (Odor) Amniotic Fluid Description: Clear Episiotomy Type: None Laceration: 2nd Degree Suture type: Other (Monocryl) Suture size: 3-0 Placenta: Intact, Spontaneous (0504 hrs. on Tuesday09/23/2019 examined and tacked discarded) Cord: 3 Vessels Estimated Blood Loss: 250 Resuscitation Needed: No Agar: Suctioned, Bulb Syringe, Stimulated, Warmed, [place] Used, Warmer Used Provider: Ron Villanueva Score 1 min: 8 Score 5 min: 9 Induction Criteria - Chacon Score Chacon Score Dilation: 1-2 cm Chacon Score Effacement: 0-30% Chacon Score 's Station: -2 Chacon Score Consistency: Soft Chacon Score Cervix Position: Posterior Chacon Score Total: 4 Chacon Score Presenting Part: Reports: Cephalic - Induction Gestational Age >/= 39 wks: Yes Estimated Pelvis: Reports: Adequate Reassuring Monitoring Strip: Yes Absence of Tachy Systole: Yes - Augmentation Estimated Pelvis: Reports: Adequate Weight Estimated:: Reports: AGA Reassuring Monitoring Strip: Yes Absence of Tachy Systole: Yes - General Info Date of Service: 09/23/19 Functional Status: Reports: Pain Controlled - Review of Systems General: Reports: No Symptoms HEENT: Reports: No Symptoms Pulmonary: Reports: No Symptoms Cardiovascular: Reports: No Symptoms Gastrointestinal: Reports: No Symptoms Genitourinary: Reports: No Symptoms Musculoskeletal: Reports: No Symptoms Skin: Reports: No Symptoms Neurological: Reports: No Symptoms Psychiatric: Reports: No Symptoms - Patient Data Vitals - Most Recent: Last Vital Signs Temp 97.9 F 09/22/19 17:22 Pulse 85 09/22/19 18:30 Resp 14 09/22/19 17:22 BP 145/84 H 09/22/19 18:30 Pulse Ox Weight - Most Recent: 209 lb Lab Results Last 24 Hours: Laboratory Results - last 24 hr 09/22/19 09/22/19 09/22/19 Range/Units 17:15 17:30 17:35 WBC 9.25 (3.98-10.04) K/mm3 RBC 4.01 (3.98-5.22) M/mm3 Hgb 12.3 (11.2-15.7) gm/dl Hct 36.7 (34.1-44.9) % MCV 91.5 (79.4-94.8) fl MCH 30.7 (25.6-32.2) pg MCHC 33.5 (32.2-35.5) g/dl RDW Std Deviation 44.5 (36.4-46.3) fL Plt Count 173 L (182-369) K/mm3 MPV 10.4 (9.4-12.3) fl Neut % (Auto) 70.3 (34.0-71.1) % Lymph % (Auto) 22.6 (19.3-51.7) % [place] % (Auto) 6.3 (4.7-12.5) % Eos % (Auto) 0.4 L (0.7-5.8) Baso % (Auto) 0.2 (0.1-1.2) % Neut # (Auto) 6.50 H (1.56-6.13) K/mm3 Lymph # (Auto) 2.09 (1.18-3.74) K/mm3 [place] # (Auto) 0.58 H (0.24-0.36) K/mm3 Eos # (Auto) 0.04 (0.04-0.36) K/mm3 Baso # (Auto) 0.02 (0.01-0.08) K/mm3 BUN (7-18) mg/dL Creatinine (0.55-1.02) mg/dL Est Cr Clr Drug Dosing mL/min Estimated GFR (MDRD) (>60) mL/min Uric Acid (2.6-6.0) mg/dL AST (15-37) U/L ALT (14-59) U/L Lactate Dehydrogenase (81-234) U/L Urine Color Yellow (Yellow) Urine Appearance Clear (Clear) Urine pH 7.0 (5.0-8.0) Ur Specific [place] 1.020 (1.005-1.030) Urine Protein Negative (Negative) Urine Glucose (UA) Negative (Negative) Urine Ketones Negative (Negative) Urine Occult Blood Negative (Negative) Urine Nitrite Negative (Negative) Urine Bilirubin Negative (Negative) Urine Urobilinogen 0.2 (0.2-1.0) Ur Leukocyte Esterase 1+ H (Negative) Urine RBC 0-5 (0-5) /hpf Urine WBC 10-20 H (0-5) /hpf Ur Squamous Epith Cells 10-20 H (0-5) /hpf Urine Bacteria Few (FEW) /hpf Urine Mucus Not seen (FEW) /hpf Ur Random Creatinine 17.5 L (30.0-125.0) mg/dL U Random Total Protein < 6.0 (0.0-11.8) mg/dL Protein/Creatinin Ratio TNP // Range/Units 17:35 WBC (3.98-10.04) K/mm3 RBC (3.98-5.22) M/mm3 Hgb (11.2-15.7) gm/dl Hct (34.1-44.9) % MCV (79.4-94.8) fl MCH (25.6-32.2) pg MCHC (32.2-35.5) g/dl RDW Std Deviation (36.4-46.3) fL Plt Count (182-369) K/mm3 MPV (9.4-12.3) fl Neut % (Auto) (34.0-71.1) % Lymph % (Auto) (19.3-51.7) % [place] % (Auto) (4.7-12.5) % Eos % (Auto) (0.7-5.8) Baso % (Auto) (0.1-1.2) % Neut # (Auto) (1.56-6.13) K/mm3 Lymph # (Auto) (1.18-3.74) K/mm3 [place] # (Auto) (0.24-0.36) K/mm3 Eos # (Auto) (0.04-0.36) K/mm3 Baso # (Auto) (0.01-0.08) K/mm3 BUN 7 (7-18) mg/dL Creatinine 0.8 (0.55-1.02) mg/dL Est Cr Clr Drug Dosing 93.63 mL/min Estimated GFR (MDRD) > 60 (>60) mL/min Uric Acid 5.3 (2.6-6.0) mg/dL AST 15 (15-37) U/L ALT 15 (14-59) U/L Lactate Dehydrogenase 148 (81-234) U/L Urine Color (Yellow) Urine Appearance (Clear) Urine pH (5.0-8.0) Ur Specific [place] (1.005-1.030) Urine Protein (Negative) Urine Glucose (UA) (Negative) Urine Ketones (Negative) Urine Occult Blood (Negative) Urine Nitrite (Negative) Urine Bilirubin (Negative) Urine Urobilinogen (0.2-1.0) Ur Leukocyte Esterase (Negative) Urine RBC (0-5) /hpf Urine WBC (0-5) /hpf Ur Squamous Epith Cells (0-5) /hpf Urine Bacteria (FEW) /hpf Urine Mucus (FEW) /hpf Ur Random Creatinine (30.0-125.0) mg/dL U Random Total Protein (0.0-11.8) mg/dL Protein/Creatinin Ratio Med Orders - Current: Current Medications Acetaminophen (Tylenol) 650 mg PO Q4H PRN PRN Reason: Pain (Mild 1-3) and fever Diphenhydramine HCl (Benadryl) 25 mg IVPUSH Q6H PRN PRN Reason: pruritis Ephedrine Sulfate (Ephedrine Sulfate) 5 mg IVPUSH ASDIRECTED PRN PRN Reason: Hypotension Fentanyl (Sublimaze) 100 mcg EPIDUR Q3H PRN PRN Reason: Pain Last Admin: 09/23/19 00:40 Dose: 100 mcg Fentanyl/Bupivacaine HCl (Fentanyl/Bupivacaine/Ns 2 Mcg-0.125% 100 Ml) 100 ml EPIDUR ASDIRECTED PRN PRN Reason: Pain Last Admin: 09/23/19 00:40 Dose: 100 ml Ampicillin Sodium 1 gm/ Sodium (Chloride) 100 mls @ 200 mls/hr IV Q4H KIMBERLY Last Admin: 09/23/19 01:57 Dose: 200 mls/hr Lactated Ringer's (Ringers, Lactated) 1,000 mls @ 100 mls/hr IV ASDIRECTED KIMBERLY Last Admin: 09/23/19 02:00 Dose: 100 mls/hr Oxytocin/Lactated Ringer's (Pitocin In Lr 10 Units/1,000 Ml) 10 unit in 1,000 mls @ 12 mls/hr IV TITRATE KIMBERLY; Protocol Last Admin: 09/22/19 23:32 Dose: 2 munits/min, 12 mls/hr Oxytocin/Lactated Ringer's (Pitocin In Lr 20 Units/1,000 Ml) 20 unit in 1,000 mls @ 500 mls/hr IV CONTINUOUS KIMBERLY Sodium Chloride (Saline Flush) 10 ml FLUSH ASDIRECTED PRN PRN Reason: Keep Vein Open Discontinued Medications Ampicillin Sodium 2 gm/ Sodium (Chloride) 100 mls @ 200 mls/hr IV ONETIME ONE Stop: 09/22/19 18:29 Last Admin: 09/22/19 18:03 Dose: 200 mls/hr Misoprostol (Cytotec) 25 mcg VAG Q4H KIMBERLY Stop: 09/23/19 01:31 Last Admin: 09/22/19 17:41 Dose: 25 mcg - Exam General: Alert, Oriented HEENT: Pupils Equal, Mucous Membr. Moist/[place] Neck: Supple Lungs: Clear to Auscultation, Normal Respiratory Effort Cardiovascular: Regular Rate, Regular Rhythm (Female) Exam: Normal External Exam Extremities: Normal Inspection, Non-Tender, No Pedal Edema, Normal Capillary Refill Skin: Warm, Dry, Intact Psy/Mental Status: Alert, Normal Affect, Normal Mood - Problem List & Annotations (1) 40 weeks gestation of SNOMED Code(s): 08198349 Code(s): Z3A.40 - 40 WEEKS GESTATION OF Status: Acute Current Visit: Yes (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 Code(s): 4829904402279 Code(s): Z22.330 - CARRIER OF GROUP B STREPTOCOCCUS Status: Acute Current Visit: Yes (3) Nuchal cord without compression, delivered, current hospitalization SNOMED Code(s): 48313211, 952371821 Code(s): O69.81X0 - LABOR AND DEL COMP BY CORD AROUND NECK, W/O COMPRSN, UNSP Status: Acute Current Visit: Yes (4) Second degree perineal laceration during delivery SNOMED Code(s): 8887091 Code(s): O70.1 - SECOND DEGREE PERINEAL LACERATION DURING DELIVERY Status: Acute Current Visit: Yes (5) Encounter for vaginal delivery SNOMED Code(s): 001298807, 706419386 Code(s): O80 - ENCOUNTER FOR FULL-TERM UNCOMPLICATED DELIVERY Status: Acute Current Visit: Yes - Problem List Review Problem List Initiated/Reviewed/Updated: No - My Orders Last 24 Hours: My Active Orders 09/22/19 17:22 Patient Status [ADT] Routine Activity as Tolerated [RC] PFP Communication Order [RC] ASDIRECTED Non Stress Test [RC] PER UNIT ROUTINE Notify Provider [RC] PFP Notify Provider [RC] PRN Vital Signs [RC] PER UNIT ROUTINE Acetaminophen [Tylenol] 650 mg PO Q4H PRN Sodium Chloride 0.9% [Saline Flush] 10 ml FLUSH ASDIRECTED PRN Electronic Heart Tones Ext w TOCO [WOMSER] Routine Electronic Heart Tones Internal [WOMSER] Per Unit Routine PIH Panel [OM.PC] Stat Peripheral IV Insertion Adult [OM.PC] Routine Resuscitation Status Routine 09/22/19 17:23 Peripheral IV Care [RC] . DIRECTED 09/22/19 17:30 Lactated Ringers [Ringers, Lactated] 1,000 ml IV ASDIRECTED Oxytocin/Lactated Ringers [Pitocin in LR 10 Units/1,000 ML] 10 unit in 1,000 ml IV TITRATE Oxytocin/Lactated Ringers [Pitocin in LR 20 Units/1,000 ML] 20 unit in 1,000 ml IV CONTINUOUS 09/22/19 17:35 RAPID PLASMA REAGIN,RPR [CHEM] Routine 09/22/19 22:00 Ampicillin 1 gm Sodium Chloride 0.9% [Normal Saline] 100 ml IV Q4H 09/22/19 Lunch Regular Diet [DIET] - Plan Plan:: Plan: Induction, delivery HPI Initial Comments: [facility] LIVE L/D Delivery Note Patient Name: VANESSA ALDRIDGE Date of : 87 Patient Status: Inpatient Attending Provider: Ron Villanueva Date: 09/23/19 05:27 Initialization Date: 09/23/19 05:27 L & D Note - General Info Date of Service: 09/23/19 Mother's Due Date: 09/20/19 - Delivery Note Cervical Ripening Method: Misoprostil, Oxytocin Delivery Outcome: Livebirth (Male liveborn Tuesday09/23/2019 at 0501 hrs. Apgars 8/9 weight 30/6/80 grams/8 pounds 1.8 ounces under epidural anesthesia over no episiotomy with second-degree midline laceration SANG nuchal cord times one) Delivery Method: Spontaneous Vaginal Delivery-Single Delivery Mode: Spontaneous Presentation: Left Occiput Anterior (SANG) Nuchal Cord: Present, Reduced Anesthesia Type: Epidural (Odor) Amniotic Fluid Description: Clear Episiotomy Type: None Laceration: 2nd Degree Suture type: Other (Monocryl) Suture size: 3-0 Placenta: Intact, Spontaneous (0504 hrs. on Tuesday09/23/2019 examined and tacked discarded) Cord: 3 Vessels Estimated Blood Loss: 250 Resuscitation Needed: No : Suctioned, Bulb Syringe, Stimulated, Warmed, [place] Used, Warmer Used Provider: Ron Villanueva Score 1 min: 8 Score 5 min: 9 Induction Criteria - Chacon Score Chacon Score Dilation: 1-2 cm Chacon Score Effacement: 0-30% Chacon Score 's Station: -2 Chacon Score Consistency: Soft Chacon Score Cervix Position: Posterior Chacon Score Total: 4 Chacon Score Presenting Part: Reports: Cephalic - Induction Gestational Age >/= 39 wks: Yes Estimated Pelvis: Reports: Adequate Reassuring Monitoring Strip: Yes Absence of Tachy Systole: Yes - Augmentation Estimated Pelvis: Reports: Adequate Weight Estimated:: Reports: AGA Reassuring Monitoring Strip: Yes Absence of Tachy Systole: Yes - General Info Date of Service: 09/23/19 Functional Status: Reports: Pain Controlled - Review of Systems General: Reports: No Symptoms HEENT: Reports: No Symptoms Pulmonary: Reports: No Symptoms Cardiovascular: Reports: No Symptoms Gastrointestinal: Reports: No Symptoms Genitourinary: Reports: No Symptoms Musculoskeletal: Reports: No Symptoms Skin: Reports: No Symptoms Neurological: Reports: No Symptoms Psychiatric: Reports: No Symptoms - Patient Data Vitals - Most Recent: Last Vital Signs Temp 97.9 F 09/22/19 17:22 Pulse 85 09/22/19 18:30 Resp 14 09/22/19 17:22 BP 145/84 H 09/22/19 18:30 Pulse Ox Weight - Most Recent: 209 lb Lab Results Last 24 Hours: Laboratory Results - last 24 hr 09/22/19 09/22/19 09/22/19 Range/Units 17:15 17:30 17:35 WBC 9.25 (3.98-10.04) K/mm3 RBC 4.01 (3.98-5.22) M/mm3 Hgb 12.3 (11.2-15.7) gm/dl Hct 36.7 (34.1-44.9) % MCV 91.5 (79.4-94.8) fl MCH 30.7 (25.6-32.2) pg MCHC 33.5 (32.2-35.5) g/dl RDW Std Deviation 44.5 (36.4-46.3) fL Plt Count 173 L (182-369) K/mm3 MPV 10.4 (9.4-12.3) fl Neut % (Auto) 70.3 (34.0-71.1) % Lymph % (Auto) 22.6 (19.3-51.7) % [place] % (Auto) 6.3 (4.7-12.5) % Eos % (Auto) 0.4 L (0.7-5.8) Baso % (Auto) 0.2 (0.1-1.2) % Neut # (Auto) 6.50 H (1.56-6.13) K/mm3 Lymph # (Auto) 2.09 (1.18-3.74) K/mm3 [place] # (Auto) 0.58 H (0.24-0.36) K/mm3 Eos # (Auto) 0.04 (0.04-0.36) K/mm3 Baso # (Auto) 0.02 (0.01-0.08) K/mm3 BUN (7-18) mg/dL Creatinine (0.55-1.02) mg/dL Est Cr Clr Drug Dosing mL/min Estimated GFR (MDRD) (>60) mL/min Uric Acid (2.6-6.0) mg/dL AST (15-37) U/L ALT (14-59) U/L Lactate Dehydrogenase (81-234) U/L Urine Color Yellow (Yellow) Urine Appearance Clear (Clear) Urine pH 7.0 (5.0-8.0) Ur Specific [place] 1.020 (1.005-1.030) Urine Protein Negative (Negative) Urine Glucose (UA) Negative (Negative) Urine Ketones Negative (Negative) Urine Occult Blood Negative (Negative) Urine Nitrite Negative (Negative) Urine Bilirubin Negative (Negative) Urine Urobilinogen 0.2 (0.2-1.0) Ur Leukocyte Esterase 1+ H (Negative) Urine RBC 0-5 (0-5) /hpf Urine WBC 10-20 H (0-5) /hpf Ur Squamous Epith Cells 10-20 H (0-5) /hpf Urine Bacteria Few (FEW) /hpf Urine Mucus Not seen (FEW) /hpf Ur Random Creatinine 17.5 L (30.0-125.0) mg/dL U Random Total Protein < 6.0 (0.0-11.8) mg/dL Protein/Creatinin Ratio TNP // Range/Units 17:35 WBC (3.98-10.04) K/mm3 RBC (3.98-5.22) M/mm3 Hgb (11.2-15.7) gm/dl Hct (34.1-44.9) % MCV (79.4-94.8) fl MCH (25.6-32.2) pg MCHC (32.2-35.5) g/dl RDW Std Deviation (36.4-46.3) fL Plt Count (182-369) K/mm3 MPV (9.4-12.3) fl Neut % (Auto) (34.0-71.1) % Lymph % (Auto) (19.3-51.7) % [place] % (Auto) (4.7-12.5) % Eos % (Auto) (0.7-5.8) Baso % (Auto) (0.1-1.2) % Neut # (Auto) (1.56-6.13) K/mm3 Lymph # (Auto) (1.18-3.74) K/mm3 [place] # (Auto) (0.24-0.36) K/mm3 Eos # (Auto) (0.04-0.36) K/mm3 Baso # (Auto) (0.01-0.08) K/mm3 BUN 7 (7-18) mg/dL Creatinine 0.8 (0.55-1.02) mg/dL Est Cr Clr Drug Dosing 93.63 mL/min Estimated GFR (MDRD) > 60 (>60) mL/min Uric Acid 5.3 (2.6-6.0) mg/dL AST 15 (15-37) U/L ALT 15 (14-59) U/L Lactate Dehydrogenase 148 (81-234) U/L Urine Color (Yellow) Urine Appearance (Clear) Urine pH (5.0-8.0) Ur Specific [place] (1.005-1.030) Urine Protein (Negative) Urine Glucose (UA) (Negative) Urine Ketones (Negative) Urine Occult Blood (Negative) Urine Nitrite (Negative) Urine Bilirubin (Negative) Urine Urobilinogen (0.2-1.0) Ur Leukocyte Esterase (Negative) Urine RBC (0-5) /hpf Urine WBC (0-5) /hpf Ur Squamous Epith Cells (0-5) /hpf Urine Bacteria (FEW) /hpf Urine Mucus (FEW) /hpf Ur Random Creatinine (30.0-125.0) mg/dL U Random Total Protein (0.0-11.8) mg/dL Protein/Creatinin Ratio Med Orders - Current: Current Medications Acetaminophen (Tylenol) 650 mg PO Q4H PRN PRN Reason: Pain (Mild 1-3) and fever Diphenhydramine HCl (Benadryl) 25 mg IVPUSH Q6H PRN PRN Reason: pruritis Ephedrine Sulfate (Ephedrine Sulfate) 5 mg IVPUSH ASDIRECTED PRN PRN Reason: Hypotension Fentanyl (Sublimaze) 100 mcg EPIDUR Q3H PRN PRN Reason: Pain Last Admin: 09/23/19 00:40 Dose: 100 mcg Fentanyl/Bupivacaine HCl (Fentanyl/Bupivacaine/Ns 2 Mcg-0.125% 100 Ml) 100 ml EPIDUR ASDIRECTED PRN PRN Reason: Pain Last Admin: 09/23/19 00:40 Dose: 100 ml Ampicillin Sodium 1 gm/ Sodium (Chloride) 100 mls @ 200 mls/hr IV Q4H KIMBERLY Last Admin: 09/23/19 01:57 Dose: 200 mls/hr Lactated Ringer's (Ringers, Lactated) 1,000 mls @ 100 mls/hr IV ASDIRECTED KIMBERLY Last Admin: 09/23/19 02:00 Dose: 100 mls/hr Oxytocin/Lactated Ringer's (Pitocin In Lr 10 Units/1,000 Ml) 10 unit in 1,000 mls @ 12 mls/hr IV TITRATE KIMBERLY; Protocol Last Admin: 09/22/19 23:32 Dose: 2 munits/min, 12 mls/hr Oxytocin/Lactated Ringer's (Pitocin In Lr 20 Units/1,000 Ml) 20 unit in 1,000 mls @ 500 mls/hr IV CONTINUOUS KIMBERLY Sodium Chloride (Saline Flush) 10 ml FLUSH ASDIRECTED PRN PRN Reason: Keep Vein Open Discontinued Medications Ampicillin Sodium 2 gm/ Sodium (Chloride) 100 mls @ 200 mls/hr IV ONETIME ONE Stop: 09/22/19 18:29 Last Admin: 09/22/19 18:03 Dose: 200 mls/hr Misoprostol (Cytotec) 25 mcg VAG Q4H KIMBERLY Stop: 09/23/19 01:31 Last Admin: 09/22/19 17:41 Dose: 25 mcg - Exam General: Alert, Oriented HEENT: Pupils Equal, Mucous Membr. Moist/[place] Neck: Supple Lungs: Clear to Auscultation, Normal Respiratory Effort Cardiovascular: Regular Rate, Regular Rhythm (Female) Exam: Normal External Exam Extremities: Normal Inspection, Non-Tender, No Pedal Edema, Normal Capillary Refill Skin: Warm, Dry, Intact Psy/Mental Status: Alert, Normal Affect, Normal Mood - Problem List & Annotations (1) 40 weeks gestation of SNOMED Code(s): 77831531 Code(s): Z3A.40 - 40 WEEKS GESTATION OF Status: Acute Current Visit: Yes (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 Code(s): 7290323486795 Code(s): Z22.330 - CARRIER OF GROUP B STREPTOCOCCUS Status: Acute Current Visit: Yes (3) Nuchal cord without compression, delivered, current hospitalization SNOMED Code(s): 16198865, 128062550 Code(s): O69.81X0 - LABOR AND DEL COMP BY CORD AROUND NECK, W/O COMPRSN, UNSP Status: Acute Current Visit: Yes (4) Second degree perineal laceration during delivery SNOMED Code(s): 0848500 Code(s): O70.1 - SECOND DEGREE PERINEAL LACERATION DURING DELIVERY Status: Acute Current Visit: Yes (5) Encounter for vaginal delivery SNOMED Code(s): 840612675, 019574474 Code(s): O80 - ENCOUNTER FOR FULL-TERM UNCOMPLICATED DELIVERY Status: Acute Current Visit: Yes - Problem List Review Problem List Initiated/Reviewed/Updated: No - My Orders Last 24 Hours: My Active Orders 09/22/19 17:22 Patient Status [ADT] Routine Activity as Tolerated [RC] PFP Communication Order [RC] ASDIRECTED Non Stress Test [RC] PER UNIT ROUTINE Notify Provider [RC] PFP Notify Provider [RC] PRN Vital Signs [RC] PER UNIT ROUTINE Acetaminophen [Tylenol] 650 mg PO Q4H PRN Sodium Chloride 0.9% [Saline Flush] 10 ml FLUSH ASDIRECTED PRN Electronic Heart Tones Ext w TOCO [WOMSER] Routine Electronic Heart Tones Internal [WOMSER] Per Unit Routine PIH Panel [OM.PC] Stat Peripheral IV Insertion Adult [OM.PC] Routine Resuscitation Status Routine 09/22/19 17:23 Peripheral IV Care [RC] . DIRECTED 09/22/19 17:30 Lactated Ringers [Ringers, Lactated] 1,000 ml IV ASDIRECTED Oxytocin/Lactated Ringers [Pitocin in LR 10 Units/1,000 ML] 10 unit in 1,000 ml IV TITRATE Oxytocin/Lactated Ringers [Pitocin in LR 20 Units/1,000 ML] 20 unit in 1,000 ml IV CONTINUOUS 09/22/19 17:35 RAPID PLASMA REAGIN,RPR [CHEM] Routine 09/22/19 22:00 Ampicillin 1 gm Sodium Chloride 0.9% [Normal Saline] 100 ml IV Q4H 09/22/19 Lunch Regular Diet [DIET] - Plan Plan:: Plan: Induction, delivery Brief History: [facility] LIVE . L/D Delivery Note. Patient Name: VANESSA ALDRIDGE Record Number: [id number]. Date of : Patient Status: Inpatient. [id number]. Date: 09/23/19 05:27Initialization Date: 09/23/19 05:27. L & D Note. - General Info. Date of Service: 09/23/19. Mother's Due Date: 09/20/19. - Delivery Note. Cervical Ripening Method: Misoprostil, Oxytocin. Delivery Outcome: Livebirth (Male liveborn Tuesday09/23/2019 at 0501 hrs. Apgars 8/9 weight 30/6/80 grams/8 pounds 1.8 ounces under epidural anesthesia over no episiotomy with second-degree midline laceration SANG nuchal cord times one). Delivery Method: Spontaneous Vaginal Delivery-Single. Infant Delivery Mode: Spontaneous. Presentation: Left Occiput Anterior (SANG). Nuchal Cord: Present, Reduced. Anesthesia Type: Epidural (Odor). Amniotic Fluid Description: Clear. Episiotomy Type: None. Laceration: 2nd Degree. Suture type: Other (Monocryl). Suture size: 3-0. Placenta: Intact, Spontaneous (0504 hrs. on Tuesday09/23/2019 examined and tacked discarded). Cord: 3 Vessels. Estimated Blood Loss: 250. Resuscitation Needed: No. Agar: Suctioned, Bulb Syringe, Stimulated, Warmed, [place] Used, Warmer Used. Provider: Ron Villanueva. Score 1 min: 8. Score 5 min: 9. Induction Criteria. - Chacon Score. Chacon Score Dilation: 1-2 cm. Chacon Score Effacement: 0-30%. Chacon Score Infant's Station: -2. Chacon Score Consistency : Soft. Chacon Score Cervix Position: Posterior. Chacon Score Total: 4. Chacon Score Presenting Part: Reports: Cephalic. - Induction. Gestational Age >/= 39 wks: Yes. Estimated Pelvis: Reports: Adequate. Reassuring Monitoring Strip: Yes. Absence of Tachy Systole: Yes. - Augmentation. Estimated Pelvis: Reports: Adequate. Weight Estimated:: Reports: AGA. Reassuring Monitoring Strip: Yes. Absence of Tachy Systole: Yes. - General Info. Date of Service: 09/23/19. Functional Status: Reports: Pain Controlled. - Review of Systems. General: Reports: No Symptoms. HEENT: Reports: No Symptoms. Pulmonary: Reports: No Symptoms. Cardiovascular: Reports : No Symptoms. Gastrointestinal: Reports: No Symptoms. Genitourinary: Reports : No Symptoms. Musculoskeletal: Reports: No Symptoms. Skin: Reports: No Symptoms. Neurological: Reports: No Symptoms. Psychiatric: Reports: No Symptoms. - Patient Data. Vitals - Most Recent: Last Vital Signs. Temp 97.9 F 09/22/19 17:22. Pulse 85 09/22/19 18:30. Resp 14 09/22/19 17:22. BP 145/ 84 H 09/22/19 18:30. Pulse Ox. Weight - Most Recent: 209 lb. Lab Results Last 24 Hours: Laboratory Results - last 24 hr. 09/21/2002/Range/ Units. 17:1517:3017:35. WBC 9.25 (3.98-10.04) K/mm3. RBC 4.01 (3.98-5.22) M /mm3. Hgb 12.3 (11.2-15.7) gm/dl. Hct 36.7 (34.1-44.9) %. MCV 91.5 (79.4- 94.8) fl. MCH 30.7 (25.6-32.2) pg. MCHC 33.5 (32.2-35.5) g/dl. RDW Std Deviation 44.5 (36.4-46.3) fL. Plt Count 173 L (182-369) K/mm3. MPV 10.4 ( 9.4-12.3) fl. Neut % (Auto) 70.3 (34.0-71.1) %. Lymph % (Auto) 22.6 (19.3- 51.7) %. [place] % (Auto) 6.3 (4.7-12.5) %. Eos % (Auto) 0.4 L (0.7-5.8). Baso % (Auto) 0.2 (0.1-1.2) %. Neut # (Auto) 6.50 H (1.56-6.13) K/mm3. Lymph # (Auto) 2.09 (1.18-3.74) K/mm3. [place] # (Auto) 0.58 H (0.24-0.36) K/ mm3. Eos # (Auto) 0.04 (0.04-0.36) K/mm3. Baso # (Auto) 0.02 (0.01-0.08) K/ mm3. BUN (7-18) mg/dL. Creatinine (0.55-1.02) mg/dL. Est Cr Clr Drug Dosing mL/min. Estimated GFR (MDRD) (>60) mL/min. Uric Acid (2.6-6.0) mg/ dL. AST (15-37) U/L. ALT (14-59) U/L. Lactate Dehydrogenase (81-234) U/L. Urine Color Yellow (Yellow). Urine Appearance Clear (Clear). Urine pH 7.0 ( 5.0-8.0). Ur Specific [place] 1.020 (1.005-1.030). Urine Protein Negative ( Negative). Urine Glucose (UA) Negative (Negative). Urine Ketones Negative ( Negative). Urine Occult Blood Negative (Negative). Urine Nitrite Negative ( Negative). Urine Bilirubin Negative (Negative). Urine Urobilinogen 0.2 (0.2- 1.0). Ur Leukocyte Esterase 1+ H (Negative). Urine RBC 0-5 (0-5) /hpf. Urine WBC 10-20 H (0-5) /hpf. Ur Squamous Epith Cells 10-20 H (0-5) /hpf. Urine Bacteria Few (FEW) /hpf. Urine Mucus Not seen (FEW) /hpf. Ur Random Creatinine 17.5 L (30.0-125.0) mg/dL. U Random Total Protein < 6.0 (0.0-11.8) mg/dL. Protein/Creatinin Ratio TNP. 03/14/20Range/Units. 17:35. WBC (3.98- 10.04) K/mm3. RBC (3.98-5.22) M/mm3. Hgb (11.2-15.7) gm/dl. Hct (34.1-44.9 ) %. MCV (79.4-94.8) fl. MCH (25.6-32.2) pg. MCHC (32.2-35.5) g/dl. RDW Std Deviation (36.4-46.3) fL. Plt Count (182-369) K/mm3. MPV (9.4-12.3) fl. Neut % (Auto) (34.0-71.1) %. Lymph % (Auto) (19.3-51.7) %. [place] % (Auto ) (4.7-12.5) %. Eos % (Auto) (0.7-5.8). Baso % (Auto) (0.1-1.2) %. Neut # ( Auto) (1.56-6.13) K/mm3. Lymph # (Auto) (1.18-3.74) K/mm3. [place] # (Auto) ( 0.24-0.36) K/mm3. Eos # (Auto) (0.04-0.36) K/mm3. Baso # (Auto) (0.01-0.08) K/mm3. BUN 7 (7-18) mg/dL. Creatinine 0.8 (0.55-1.02) mg/dL. Est Cr Clr Drug Dosing 93.63 mL/min. Estimated GFR (MDRD) > 60 (>60) mL/min. Uric Acid 5.3 (2.6-6.0) mg/dL. AST 15 (15-37) U/L. ALT 15 (14-59) U/L. Lactate Dehydrogenase 148 (81-234) U/L. Urine Color (Yellow). Urine Appearance (Clear ). Urine pH (5.0-8.0). Ur Specific [place] (1.005-1.030). Urine Protein ( Negative). Urine Glucose (UA) (Negative). Urine Ketones (Negative). Urine Occult Blood (Negative). Urine Nitrite (Negative). Urine Bilirubin (Negative) . Urine Urobilinogen (0.2-1.0). Ur Leukocyte Esterase (Negative). Urine RBC ( 0-5) /hpf. Urine WBC (0-5) /hpf. Ur Squamous Epith Cells (0-5) /hpf. Urine Bacteria (FEW) /hpf. Urine Mucus (FEW) /hpf. Ur Random Creatinine ( 30.0-125.0) mg/dL. U Random Total Protein (0.0-11.8) mg/dL. Protein/ Creatinin Ratio. Med Orders - Current: Current Medications. Acetaminophen ( Tylenol) 650 mg PO Q4H PRN. PRN Reason: Pain (Mild 1-3) and fever. Diphenhydramine HCl (Benadryl) 25 mg IVPUSH Q6H PRN. PRN Reason: pruritis. Ephedrine Sulfate (Ephedrine Sulfate) 5 mg IVPUSH ASDIRECTED PRN. PRN Reason: Hypotension. Fentanyl (Sublimaze) 100 mcg EPIDUR Q3H PRN. PRN Reason: Pain. Last Admin: 09/23/19 00:40 Dose: 100 mcg. Fentanyl/Bupivacaine HCl (Fentanyl/ Bupivacaine/Ns 2 Mcg-0.125% 100 Ml) 100 ml EPIDUR ASDIRECTED PRN. PRN Reason: Pain. Last Admin: 09/23/19 00:40 Dose: 100 ml. Ampicillin Sodium 1 gm/ Sodium (Chloride) 100 mls @ 200 mls/hr IV Q4H KIMBERLY. Last Admin: 09/23/19 01:57 Dose: 200 mls/hr. Lactated Ringer's (Ringers, Lactated) 1,000 mls @ 100 mls/ hr IV ASDIRECTED KIMBERLY. Last Admin: 09/23/19 02:00 Dose: 100 mls/hr. Oxytocin/ Lactated Ringer's (Pitocin In Lr 10 Units/1,000 Ml) 10 unit in 1,000 mls @ 12 mls/hr IV TITRATE KIMBERLY; Protocol. Last Admin: 09/22/19 23:32 Dose: 2 munits/min , 12 mls/hr. Oxytocin/Lactated Ringer's (Pitocin In Lr 20 Units/1,000 Ml) 20 unit in 1,000 mls @ 500 mls/hr IV CONTINUOUS KIMBERLY. Sodium Chloride (Saline Flush ) 10 ml FLUSH ASDIRECTED PRN. PRN Reason: Keep Vein Open. Discontinued Medications. Ampicillin Sodium 2 gm/ Sodium (Chloride) 100 mls @ 200 mls/hr IV ONETIME ONE. Stop: 09/22/19 18:29. Last Admin: 09/22/19 18:03 Dose: 200 mls/hr. Misoprostol (Cytotec) 25 mcg VAG Q4H KIMBERLY. Stop: 09/23/19 01:31. Last Admin: 09/22/19 17:41 Dose: 25 mcg. - Exam. General: Alert, Oriented. HEENT: Pupils Equal, Mucous Membr. Moist/[place]. Neck: Supple. Lungs: Clear to Auscultation, Normal Respiratory Effort. Cardiovascular: Regular Rate, Regular Rhythm. (Female) Exam: Normal External Exam. Extremities: Normal Inspection , Non-Tender, No Pedal Edema, Normal Capillary Refill. Skin: Warm, Dry, Intact. Psy/Mental Status: Alert, Normal Affect, Normal Mood. - Problem List & Annotations. (1) 40 weeks gestation of . SNOMED Code(s): 65473693. Code(s): Z3A.40 - 40 WEEKS GESTATION OF Status: Acute Current Visit: Yes. (2) GBS carrier. SNOMED Code(s): 5179356345143. Code(s): Z22.330 - CARRIER OF GROUP B STREPTOCOCCUS Status: Acute Current Visit: Yes. (3) Nuchal cord without compression, delivered, current hospitalization. SNOMED Code(s): 76828782, 535338881. Code(s): O69.81X0 - LABOR AND DEL COMP BY CORD AROUND NECK, W/O COMPRSN, UNSP Status: Acute Current Visit: Yes. (4) Second degree perineal laceration during delivery. SNOMED Code(s): 7723207. Code(s): O70.1 - SECOND DEGREE PERINEAL LACERATION DURING DELIVERY Status: Acute Current Visit: Yes. (5) Encounter for vaginal delivery. SNOMED Code(s) : 656451024, 921103389. Code(s): O80 - ENCOUNTER FOR FULL-TERM UNCOMPLICATED DELIVERY Status: Acute Current Visit: Yes. - Problem List Review. Problem List Initiated/Reviewed/Updated: No. - My Orders. Last 24 Hours: My Active Orders. 09/22/19 17:22. Patient Status [ADT] Routine. Activity as Tolerated [ RC] PFP. Communication Order [RC] ASDIRECTED. Non Stress Test [RC] PER UNIT ROUTINE. Notify Provider [RC] PFP. Notify Provider [RC] PRN. Vital Signs [RC] PER UNIT ROUTINE. Acetaminophen [Tylenol] 650 mg PO Q4H PRN. Sodium Chloride 0.9% [Saline Flush] 10 ml FLUSH ASDIRECTED PRN. Electronic Heart Tones Ext w TOCO [WOMSER] Routine. Electronic Heart Tones Internal [WOMSER] Per Unit Routine. PIH Panel [OM.PC] Stat. Peripheral IV Insertion Adult [OM.PC] Routine. Resuscitation Status Routine. 09/22/19 17: 23. Peripheral IV Care [RC] . DIRECTED. 09/22/19 17:30. Lactated Ringers [ Ringers, Lactated] 1,000 ml IV ASDIRECTED. Oxytocin/Lactated Ringers [Pitocin in LR 10 Units/1,000 ML] 10 unit in 1,000 ml IV TITRATE. Oxytocin/Lactated Ringers [Pitocin in LR 20 Units/1,000 ML] 20 unit in 1,000 ml IV CONTINUOUS. 17:35. RAPID PLASMA REAGIN,RPR [CHEM] Routine. 09/22/19 22:00. Ampicillin 1 gm Sodium Chloride 0.9% [Normal Saline] 100 ml IV Q4H. 09/22/19 Lunch. Regular Diet [DIET]. - Plan. Plan:: Plan: Induction, delivery Diagnosis: Stroke: No - Discharge Data Discharge Date: 09/24/19 Discharge Disposition: Home, Self-Care 01 Condition: Good - Referral to Home Health Primary Care Physician: Rogerio Condon MD - Discharge Diagnosis/Problem(s) (1) 40 weeks gestation of SNOMED Code(s): 85951840 ICD Code: Z3A.40 - 40 WEEKS GESTATION OF Status: Acute Current Visit: Yes (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 Code(s): 8789629559309 ICD Code: Z22.330 - CARRIER OF GROUP B STREPTOCOCCUS Status: Acute Current Visit: Yes (3) Nuchal cord without compression, delivered, current hospitalization SNOMED Code(s): 47175838, 539851613 ICD Code: O69.81X0 - LABOR AND DEL COMP BY CORD AROUND NECK, W/O COMPRSN, UNSP Status: Acute Current Visit: Yes (4) Second degree perineal laceration during delivery SNOMED Code(s): 4346980 ICD Code: O70.1 - SECOND DEGREE PERINEAL LACERATION DURING DELIVERY Status : Acute Current Visit: Yes (5) Encounter for vaginal delivery SNOMED Code(s): 686348795, 610778589 ICD Code: O80 - ENCOUNTER FOR FULL-TERM UNCOMPLICATED DELIVERY Status: Acute Current Visit: Yes - Patient Summary/Data Complications: None Labs Pending at D/C: None Hospital Course: uneventful - Patient Instructions Diet: Usual Diet as Tolerated Driving: Do Not Drive (48 hours) Showering/Bathing: May Shower Notify Provider of: Fever, Increased Pain, Swelling and Redness, Drainage, Nausea and/or Vomiting - Discharge Plan *PRESCRIPTION DRUG MONITORING PROGRAM REVIEWED*: Not Applicable *COPY OF PRESCRIPTION DRUG MONITORING REPORT IN PATIENT THAD: Not Applicable Home Medications: Home Meds [id number]/Iron Fumarate/FA/DSS [ 19 Tablet] 1 each PO DAILY 09/22/19 [ History] Acetaminophen [Tylenol] 650 mg PO Q6H PRN tablet 09/24/19 [Rx] Docusate Sodium [Colace] 100 mg PO BID PRN cap 09/24/19 [Rx] Ibuprofen [Motrin] 600 mg PO Q4H PRN tablet 09/24/19 [Rx] witch Honey [Tucks] 1 pad TOP ASDIRECTED PRN pad 09/24/19 [Rx] Referrals: Rogerio Condon MD [Primary Care Provider] - (Call today for appointment in 2 weeks) - Discharge Summary/Plan Comment DC Time >30 min.: No - Patient Data Vitals - Most Recent: Last Vital Signs Temp 98.2 F 09/24/19 05:16 Pulse 81 09/24/19 05:16 Resp 14 09/24/19 05:16 BP 121/86 09/24/19 05:16 Pulse Ox 100 09/24/19 05:16 Weight - Most Recent: 209 lb I&O - Last 24 hours: Intake & Output 09/23/19 09/24/19 09/24/19 22:59 06:59 14:59 Intake Total 25 Balance 25 Lab Results - Last 24 hrs: Laboratory Results - last 24 hr 09/24/19 Range/Units 07:08 WBC 9.69 (3.98-10.04) K/mm3 RBC 4.02 (3.98-5.22) M/mm3 Hgb 12.2 (11.2-15.7) gm/dl Hct 37.5 (34.1-44.9) % MCV 93.3 (79.4-94.8) fl MCH 30.3 (25.6-32.2) pg MCHC 32.5 (32.2-35.5) g/dl RDW Std Deviation 45.9 (36.4-46.3) fL Plt Count 158 L (182-369) K/mm3 MPV 10.4 (9.4-12.3) fl Neut % (Auto) 71.6 H (34.0-71.1) % Lymph % (Auto) 21.5 (19.3-51.7) % [place] % (Auto) 5.1 (4.7-12.5) % Eos % (Auto) 1.2 (0.7-5.8) Baso % (Auto) 0.4 (0.1-1.2) % Neut # (Auto) 6.94 H (1.56-6.13) K/mm3 Lymph # (Auto) 2.08 (1.18-3.74) K/mm3 [place] # (Auto) 0.49 H (0.24-0.36) K/mm3 Eos # (Auto) 0.12 (0.04-0.36) K/mm3 Baso # (Auto) 0.04 (0.01-0.08) K/mm3 Med Orders - Current: Current Medications Acetaminophen (Tylenol) 650 mg PO Q4H PRN PRN Reason: mild pain or fever Last Admin: 09/24/19 02:39 Dose: 650 mg Benzocaine/Menthol (Dermoplast Pain Relief [place]) 0 gm TOP ASDIRECTED PRN PRN Reason: Pain Last Admin: 09/23/19 06:34 Dose: 1 canister Docusate Sodium (Colace) 100 mg PO BID PRN PRN Reason: Constipation Last Admin: 09/23/19 06:35 Dose: 100 mg Ibuprofen (Motrin) 600 mg PO Q4H PRN PRN Reason: Mild pain or fever Last Admin: 09/24/19 05:17 Dose: 600 mg Witch Honey (Tucks) 1 pad TOP ASDIRECTED PRN PRN Reason: Perineal Comfort Measure Last Admin: 09/23/19 06:35 Dose: 1 tub Discontinued Medications Acetaminophen (Tylenol) 650 mg PO Q4H PRN PRN Reason: Pain (Mild 1-3) and fever Diphenhydramine HCl (Benadryl) 25 mg IVPUSH Q6H PRN PRN Reason: pruritis Ephedrine Sulfate (Ephedrine Sulfate) 5 mg IVPUSH ASDIRECTED PRN PRN Reason: Hypotension Fentanyl (Sublimaze) 100 mcg EPIDUR Q3H PRN PRN Reason: Pain Last Admin: 09/23/19 00:40 Dose: 100 mcg Fentanyl/Bupivacaine HCl (Fentanyl/Bupivacaine/Ns 2 Mcg-0.125% 100 Ml) 100 ml EPIDUR ASDIRECTED PRN PRN Reason: Pain Last Admin: 09/23/19 00:40 Dose: 100 ml Ampicillin Sodium 2 gm/ Sodium (Chloride) 100 mls @ 200 mls/hr IV ONETIME ONE Stop: 09/22/19 18:29 Last Admin: 09/22/19 18:03 Dose: 200 mls/hr Ampicillin Sodium 1 gm/ Sodium (Chloride) 100 mls @ 200 mls/hr IV Q4H KIMBERLY Last Admin: 09/23/19 01:57 Dose: 200 mls/hr Lactated Ringer's (Ringers, Lactated) 1,000 mls @ 100 mls/hr IV ASDIRECTED KIMBERLY Last Admin: 09/23/19 02:00 Dose: 100 mls/hr Oxytocin/Lactated Ringer's (Pitocin In Lr 10 Units/1,000 Ml) 10 unit in 1,000 mls @ 12 mls/hr IV TITRATE KIMBERLY; Protocol Last Titration: 09/23/19 06:09 Dose: 250 mls/hr Oxytocin/Lactated Ringer's (Pitocin In Lr 20 Units/1,000 Ml) 20 unit in 1,000 mls @ 500 mls/hr IV CONTINUOUS KIMBERLY Misoprostol (Cytotec) 25 mcg VAG Q4H KIMBERLY Stop: 09/23/19 01:31 Last Admin: 09/22/19 17:41 Dose: 25 mcg Sodium Chloride (Saline Flush) 10 ml FLUSH ASDIRECTED PRN PRN Reason: Keep Vein Open
[2019-09-24] MEDS: Benzocaine/Menthol 20%-0.5% Spray 56 GM Canister TOP PRN (09:37)
[2019-09-24] MEDS: Witch Hazel Medicated Pads 40/Jar TOP PRN (09:37)
== END 2019-09-24 10:00 | disposition home or self-care (01) | DRG 560 ==
LOC: JD.OB 16:36 → JD.OBCHECK 16:36 → JD.OB 17:22 → OBSVTOIN 09-23 05:01 → JD.OB 09-23 05:02
PROVIDERS: ADMIT Obstetrics & Gynecology; ATTEND Obstetrics & Gynecology
PROC: 10E0XZZ Delivery of Products of Conception, External Approach (ICD-10-PCS; principal; 2019-09-23)
PROC: 0KQM0ZZ Repair Perineum Muscle, Open Approach (ICD-10-PCS; 2019-09-23)
PROC: 3E0P7VZ Introduction of Hormone into Female Reproductive, Via Natural or Artificial Opening (ICD-10-PCS; 2019-09-23)
PROC: 3E033VJ Introduction of Other Hormone into Peripheral Vein, Percutaneous Approach (ICD-10-PCS; 2019-09-23)
PROC: 3E0R3BZ Introduction of Anesthetic Agent into Spinal Canal, Percutaneous Approach (ICD-10-PCS; 2019-09-23)
DX: O48.0 Post-term pregnancy (principal); O99.824 Streptococcus B carrier state complicating childbirth; Z79.899 Other long term (current) drug therapy; O70.1 Second degree perineal laceration during delivery; O69.81X0 Labor and delivery complicated by cord around neck, without compression, not applicable or unspecified; Z3A.40 40 weeks gestation of pregnancy; Z37.0 Single live birth
CPT/HCPCS: 01967; 36415; 51702; 59025; 59409; 81001; 82565; 82570; 83615; 84156; 84450; 84460; 84520; 84550; 85025; 86592; A9270-GY; J0290; J2590; J3010; J7050; J7120